=== PATIENT | male | born 1950 | race Caucasian/White ===

== ENCOUNTER 2021-08-21 18:14 | Emergency (ER) | payer MEDICARE, OTHER ==
[2021-08-21 18:20] VITALS: TEMP 97.8
--- NOTE | 2021-08-21 21:13 | ED ---
Chest Pain HPI - General Chief Complaint: Chest Pain Stated Complaint: chest pain Time Seen by Provider: 08/21/21 19:25 Source: patient Mode of arrival: ambulatory Limitations: no limitations - History of Present Illness Initial Comments: Patient is a 71-year-old male who presents emergency department for not feeling well. Sisters at bedside and helps supplement the history. Patient states that earlier today he did not feel well and therefore agreed to come to the hospital for evaluation. Upon my exam the patient states that he made a mistake and he wants to go home. He states that he had some chest pain yesterday however it has improved and he feels better. He has a history of coronary artery bypass grafting. Denies that he sees a physician at this time or takes any medications. Sisters states that he is a daily drinker. He has been for very long time. She has been losing weight and not caring for himself since his in September. She went over his house today to clean for him and she does once a month. He states that he felt fatigued and mentioned to her that he was having chest pain last night. Recommend that he come into the hospital however he originally refused. She states that she drove home and was almost to her house when he called her and stated that he did want according to the hospital. She reports that she turned around and when picked him up. Upon arrival here the patient had an EKG which showed a high heart rate. He did allow the nurse to put in an IV and obtain blood work however the patient quickly changed his mind and stated that he wanted to leave. He will not answer any further questions. He is not currently intoxicated - Related Data Home Medications Medication Instructions Recorded Confirmed Metoprolol Tartrate [Lopressor] 25 mg PO BID 08/26/21 08/26/21 Previous Rx's Medication Instructions Recorded Multivitamins, Thera [Multivitamin 1 each PO DAILY #30 tab 08/27/21 (formulary)] Thiamine [Vitamin B-1] 100 mg PO BID-W/MEALS #14 tab 08/27/21 Allergies Allergy/AdvReac Type Severity Reaction Status Date / Time No Known Allergies Allergy Verified 08/25/21 20:00 Review of Systems ROS Statement: Those systems with pertinent positive or pertinent negative responses have been documented in the HPI. ROS Other: All systems not noted in ROS Statement are negative. EKG Findings - EKG Comments: EKG Findings:: EKG demonstrates sinus tachycardia with a ventricular rate of 127. AR interval 140. QRS 86. QTC of 398. ST depression in leads V2 through V6 as well as the inferior leads. No acute ST segment elevation Past Medical History Past Medical History: Coronary Artery Disease (CAD) Additional Past Medical History / Comment(s): Bypass surg. History of Any Multi-Drug Resistant Organisms: None Reported Past Surgical History: No Surgical Hx Reported Past Psychological History: No Psychological Hx Reported Smoking Status: Never smoker Past Alcohol Use History: Daily Past Drug Use History: None Reported General Exam Limitations: no limitations General appearance: alert, anxious Head exam: Present: atraumatic, normocephalic, normal inspection ENT exam: Present: mucous membranes dry Respiratory exam: Present: normal lung sounds bilaterally. Absent: respiratory distress, wheezes, rales, rhonchi, stridor Cardiovascular Exam: Present: normal rhythm, tachycardia GI/Abdominal exam: Present: soft, normal bowel sounds. Absent: distended, tenderness, guarding, rebound, rigid Neurological exam: Present: alert Psychiatric exam: Present: anxious Skin exam: Present: warm, dry, intact, normal color. Absent: rash Course Vital Signs 08/21/21 08/21/21 18:18 19:48 Temperature 97.8 F Pulse Rate 128 H 127 H Respiratory 24 18 Rate Blood Pressure 115/67 130/80 O2 Sat by Pulse 99 99 Oximetry Chest Pain MDM - MDM Upon arrival patient is placed into room 14. He does allow us to get an EKG and obtain some lab work. I go into the room to speak with the patient and he is requesting to leave. Patient is alert, oriented and free of any mind altering substances. Patient is not currently intoxicated. Sister is at bedside and states the patient is at his normal baseline mentation. He is requesting to leave stating that he feels better at this time and made a mistake. States he no longer wants a workup. I did discuss the risks of leaving which include permanent disability and . Patient is aware of these risks and states that he still wants to leave. Inform him that he would be leaving AGAINST MEDICAL ADVICE. Spoke with the patient's sister as well. She does call and speak with the patient's daughter. They will attempt to persuade taking the patient into his primary care doctor. He is asked to return should he agree to any further workup. Patient agreed to this and left AGAINST MEDICAL ADVICE Disposition Clinical Impression: Dehydration, Tachycardia Disposition: Left Against Medical Advice Condition: Undetermined Is patient prescribed a controlled substance at d/c from ED?: No Referrals: None,Stated [Primary Care Provider] - 1-2 days
[2021-08-22 00:25] VITALS: BP 130/80; PULSE 127; RESP 18
== END 2021-08-21 21:29 | disposition left against medical advice (07) ==
LOC: EC 18:14
DX: R00.0 Tachycardia, unspecified (principal); E86.0 Dehydration; I25.10 Atherosclerotic heart disease of native coronary artery without angina pectoris; Z95.1 Presence of aortocoronary bypass graft
CPT/HCPCS: 93005; 99284

== ENCOUNTER 2021-08-25 19:49 | Inpatient (IN) | payer MEDICARE, OTHER ==
[2021-08-25] MEDS ORDERED: SODIUM CHLORIDE 0.9% 1,000 ML IV STA (20:01)
[2021-08-25 20:17] LABS: Basophils % (A) 0 %; Eosinophils # (A) 0.1 k/uL (0-0.7); Eosinophils % (A) 1 %; HGB 14.1 gm/dL (13.0-17.5); Lymphocytes # (A) 0.9 k/uL (1.0-4.8); Lymphocytes % (A) 12 %; MCH 37.3 pg (25.0-35.0); MCHC 32.9 g/dL (31.0-37.0); MCV 113.4 fL (80.0-100.0); Macrocytosis Marked; Mean Platelet Volume 7.4; Monocytes # (A) 0.3 k/uL (0-1.0); Monocytes % (A) 5 %; Neutrophils # (A) 5.7 k/uL (1.3-7.7); Neutrophils % (A) 80 %; Platelet Count 127 k/uL (150-450); RBC 3.79 m/uL (4.30-5.90); RDW 14.3 % (11.5-15.5); WBC 7.1 k/uL (3.8-10.6)
[2021-08-25 20:29] LABS: ALT 52 U/L (4-49); AST 103 U/L (17-59); African American GFR (CKD) >90 (>60 ml/min/1.73 sqM); Albumin 2.9 g/dL (3.5-5.0); Alkaline Phosphatase 202 U/L (38-126); Anion Gap 15 mmol/L; Blood Urea Nitrogen 5 mg/dL (9-20); Calcium 8.7 mg/dL (8.4-10.2); Carbon Dioxide 20 mmol/L (22-30); Chloride 90 mmol/L (98-107); Glucose 94 mg/dL (74-99); Magnesium 1.8 mg/dL (1.6-2.3); Non-African American GFR(CKD) >90 (>60 ml/min/1.73 sqM); Potassium 3.5 mmol/L (3.5-5.1); Sodium 125 mmol/L (137-145); Total Bilirubin 2.9 mg/dL (0.2-1.3); Total Protein 6.2 g/dL (6.3-8.2)
[2021-08-25 20:31] LABS: INR 1.1 (<1.2); Partial Thromboplastin Time 25.8 sec (22.0-30.0); Prothrombin Time 11.6 sec (9.0-12.0)
--- NOTE | 2021-08-25 20:35 | XR ---
EXAMINATION TYPE: XR chest 2V DATE OF EXAM: 08/25/2021 COMPARISON: NONE HISTORY: Shortness of breath TECHNIQUE: Frontal and lateral views of the chest are obtained. FINDINGS: Scattered senescent parenchymal changes noted. Hyperinflation compatible with COPD. No evidence for infiltrate. No evidence for atelectasis. Heart size is stable. Mediastinal structures are stable and grossly unremarkable. No evidence for hilar prominence. Degenerative changes dorsal spine. IMPRESSION: 1. No evidence for acute pulmonary disease.
--- NOTE | 2021-08-25 21:37 | ED ---
General Adult HPI - General Chief complaint: Arrhythmia/Palpitations Stated complaint: Tachycardia Time Seen by Provider: 08/25/21 20:01 Source: patient, EMS Mode of arrival: EMS Limitations: no limitations - History of Present Illness Initial comments: Chris is a 71-year-old male who is brought to the ER today by his sister for evaluation of not feeling well. Patient came to the ER earlier in the week but after EKG decided he did not want to be evaluated and left AGAINST MEDICAL ADVICE. After going home patient has continued to feel unwell, he's not eating or drinking he has had some pain in his left shoulder but no chest pain or shortness of breath. He just has generalized malaise and fatigue. Sister is concerned that he is very weak and dehydrated. - Related Data Home Medications Medication Instructions Recorded Confirmed Metoprolol (Unknown) 1 tab PO DAILY 08/25/21 08/25/21 Allergies Allergy/AdvReac Type Severity Reaction Status Date / Time No Known Allergies Allergy Verified 08/25/21 20:00 Review of Systems ROS Statement: Those systems with pertinent positive or pertinent negative responses have been documented in the HPI. ROS Other: All systems not noted in ROS Statement are negative. Past Medical History Past Medical History: Coronary Artery Disease (CAD) Additional Past Medical History / Comment(s): Bypass surg. History of Any Multi-Drug Resistant Organisms: None Reported Past Surgical History: No Surgical Hx Reported Past Psychological History: No Psychological Hx Reported Smoking Status: Never smoker Past Alcohol Use History: Daily Past Drug Use History: None Reported General Exam - General Exam Comments Initial Comments: Physical Exam GENERAL: Dehydrated appearing elderly gentleman HENT: Normocephalic, Atraumatic. EYES: PERRL, EOMI PULMONARY: Unlabored respirations. No audible rales rhonchi or wheezing was noted. CARDIOVASCULAR: There is a regular rate and rhythm without any murmurs gallops or rubs. ABDOMEN: Soft and nontender with normal bowel sounds. SKIN: Dry, skin tenting noted Bruise to the left eyelid patient reports that this is not acute and is from rubbing his eyes not traumatic : Deferred NEUROLOGIC: Alert and oriented to person and place, somewhat confused about the timeline of the week, easily confused when trying to her by medical history. MUSCULOSKELETAL: Generalized atrophy PSYCHIATRIC: Poor historian, easily confused but cooperative, Limitations: no limitations Course Vital Signs 10/08/25/21 08/25/21 19:50 20:00 20:01 Temperature 97.5 F L Pulse Rate 108 H 93 Pulse Rate [ 108 H Manager Engagement ] Respiratory 22 22 Rate Blood Pressure 133/81 O2 Sat by Pulse 98 100 Oximetry 08/25/21 21:00 Temperature Pulse Rate 82 Pulse Rate [ Manager Engagement ] Respiratory 20 Rate Blood Pressure 139/88 O2 Sat by Pulse 97 Oximetry EKG Findings - EKG Comments: EKG Findings:: EKG was obtained due to tachycardia, EKG was obtained at 1953 rate is 98 rhythm is sinus tachycardia there is normal axis, IN 132, QRS 90 QTc is prolonged at [address] depressions laterally no acute ST elevations no evidence of acute infarction. Medical Decision Making - Medical Decision Making The patient was seen and evaluated history is obtained from medical record patient and sister at bedside, so very dehydrated-appearing 71-year-old gentleman, labs are obtained and resulted with multiple significant abnormalities including low platelets, low lymphocytes, hyponatremia with a sodium of only 125, evidence of dehydration, transaminitis COVID sob was obtained and was negative Given the patient's advanced age and multiple lab abnormalities I do feel he warrants admission to the hospital for fluid resuscitation, reevaluation of the labs and further monitoring. Patient care was discussed with Dr. Gallegos of [facility] who accepts the admission. - Lab Data Result diagrams: 08/25/21 20:07 08/25/21 20:07 Lab Results 08/25/21 08/25/21 08/25/21 Range/Units 20:07 20:07 20:07 WBC 7.1 (3.8-10.6) k/uL RBC 3.79 L (4.30-5.90) m/uL Hgb 14.1 (13.0-17.5) gm/dL Hct 43.0 (39.0-53.0) % MCV 113.4 H (80.0-100.0) fL MCH 37.3 H (25.0-35.0) pg MCHC 32.9 (31.0-37.0) g/dL RDW 14.3 (11.5-15.5) % Plt Count 127 L (150-450) k/uL MPV 7.4 Neutrophils % 80 % Lymphocytes % 12 % Monocytes % 5 % Eosinophils % 1 % Basophils % 0 % Neutrophils # 5.7 (1.3-7.7) k/uL Lymphocytes # 0.9 L (1.0-4.8) k/uL Monocytes # 0.3 (0-1.0) k/uL Eosinophils # 0.1 (0-0.7) k/uL Basophils # 0.0 (0-0.2) k/uL Macrocytosis Marked A PT 11.6 (9.0-12.0) sec INR 1.1 (<1.2) APTT 25.8 (22.0-30.0) sec Sodium 125 L (137-145) mmol/L Potassium 3.5 (3.5-5.1) mmol/L Chloride 90 L (98-107) mmol/L Carbon Dioxide 20 L (22-30) mmol/L Anion Gap 15 mmol/L BUN 5 L (9-20) mg/dL Creatinine 0.47 L (0.66-1.25) mg/dL Est GFR (CKD-EPI)AfAm >90 (>60 ml/min/1.73 sqM) Est GFR (CKD-EPI)NonAf >90 (>60 ml/min/1.73 sqM) Glucose 94 (74-99) mg/dL Calcium 8.7 (8.4-10.2) mg/dL Magnesium 1.8 (1.6-2.3) mg/dL Total Bilirubin 2.9 H (0.2-1.3) mg/dL AST 103 H (17-59) U/L ALT 52 H (4-49) U/L Alkaline Phosphatase 202 H (38-126) U/L Troponin I (0.000-0.034) ng/mL Total Protein 6.2 L (6.3-8.2) g/dL Albumin 2.9 L (3.5-5.0) g/dL TSH 1.730 (0.465-4.680) mIU/L Coronavirus (PCR) (Not Detectd) 08/25/21 08/25/21 Range/Units 20:07 21:42 WBC (3.8-10.6) k/uL RBC (4.30-5.90) m/uL Hgb (13.0-17.5) gm/dL Hct (39.0-53.0) % MCV (80.0-100.0) fL MCH (25.0-35.0) pg MCHC (31.0-37.0) g/dL RDW (11.5-15.5) % Plt Count (150-450) k/uL MPV Neutrophils % % Lymphocytes % % Monocytes % % Eosinophils % % Basophils % % Neutrophils # (1.3-7.7) k/uL Lymphocytes # (1.0-4.8) k/uL Monocytes # (0-1.0) k/uL Eosinophils # (0-0.7) k/uL Basophils # (0-0.2) k/uL Macrocytosis PT (9.0-12.0) sec INR (<1.2) APTT (22.0-30.0) sec Sodium (137-145) mmol/L Potassium (3.5-5.1) mmol/L Chloride (98-107) mmol/L Carbon Dioxide (22-30) mmol/L Anion Gap mmol/L BUN (9-20) mg/dL Creatinine (0.66-1.25) mg/dL Est GFR (CKD-EPI)AfAm (>60 ml/min/1.73 sqM) Est GFR (CKD-EPI)NonAf (>60 ml/min/1.73 sqM) Glucose (74-99) mg/dL Calcium (8.4-10.2) mg/dL Magnesium (1.6-2.3) mg/dL Total Bilirubin (0.2-1.3) mg/dL AST (17-59) U/L ALT (4-49) U/L Alkaline Phosphatase (38-126) U/L Troponin I <0.012 (0.000-0.034) ng/mL Total Protein (6.3-8.2) g/dL Albumin (3.5-5.0) g/dL TSH (0.465-4.680) mIU/L Coronavirus (PCR) Not Detected (Not Detectd) Disposition Clinical Impression: Hyponatremia, Transaminitis, Dehydration Disposition: ADMITTED IP TO THIS [facility] Condition: Serious
[2021-08-25] MEDS ORDERED: NALOXONE 0.4 MG/ML 1 ML VIAL IV PRN (21:51)
[2021-08-26] MEDS ORDERED: THIAMINE 100 MG/ML 2 ML VIAL IM STA (01:12)
[2021-08-26] MEDS ORDERED: LORazepam 2 MG/ML INJ IV PRN ×3 (01:12)
--- NOTE | 2021-08-26 01:14 | P.HPIM ---
History of Present Illness H&P Date: 08/26/21 Patient is 71-year-old male with a PMH of CAD and alcohol abuse who was brought into the ED by his daughter for failure to thrive. The patient notes that he has been "not feeling well" for the past few weeks. He is unable to state a precise reason or complaint but notes that he doesn't have much of an appetite and doesn't have the energy to perform his ADLs. The patient lives by himself. The history was supplemented by his daughter on the telephone who reported that the patient normally drinks several glasses of red wine and some beers every day and she believes that his overall health has gradually deteriorated since the passing of his last year in September. She reports that he has lost roughly 20-30 pounds in the past few months. The patient denied chest discomfort, shortness of breath, cough, fever, chills. He also denied falls, weakness, numbness, tingling. Denied nausea, vomiting, abdominal pain, diarrhea. Laboratory evaluation in the emergency room was remarkable for macrocytosis of 113.4, the consult 127, sodium 125, chloride 90, BUN 5, creatinine 0.47, AST 103, ALT 52, alk phos 202, and albumin 2.9 with coronavirus PCR negative. EKG has revealed a normal sinus rhythm at 98 bpm with T-wave inversions noted in the precordial leads along with the prolonged QTC. Review of systems: Pertinent positives and negatives as discussed in HPI, a complete review of systems was performed and all other systems are negative. Physical examination: General: non toxic, no distress, appears at stated age, frail Derm: no unusual rashes/lesions no unusual ecchymoses, warm, dry Head: atraumatic, normocephalic, symmetric Eyes: EOMI, no lid lag, anicteric sclera, pupils equal round reactive to light ENT: Nose and ears atraumatic, no thrush, no pharyngeal erythema Neck: No thyromegaly, no cervical lymphadenopathy, trachea midline, supple Mouth: no lip lesion, mucus membranes moist Cardiovascular: S1S2 reg, no murmur, positive posterior tibial pulse bilateral, no edema, capillary refill less than 2 seconds Lungs: CTA bilateral, no rhonchi, no rales , no accessory muscle use Abdominal: soft, nontender to palpation, no guarding, no appreciable organomegaly, normal bowel sounds Ext: no gross muscle atrophy, muscle strength 4 out of 5 in all 4 extremities grossly, no contractures, Neuro: CN II-XI grossly intact, light touch intact all 4 extremities, finger to nose within normal limits, Psych: Alert, oriented only to person and place, not oriented to time Assessment/plan Failure to thrive, may be due to ongoing alcohol abuse -Patient denied depression or suicidal ideation -Physical therapy consult -Dietitian consult as patient appears to be malnourished Macrocytosis -Obtain anemia workup Hypochloremic hyponatremia -Likely secondary to poor oral intake -IV fluids and monitor for now Alcohol abuse -Thiamine -CIWA protocol -Fall precautions Abnormal LFTs -Likely secondary to alcohol abuse Prolonged QTC -Avoid further prolonging agents DVT prophylaxis -Heparin subcu The patient is admitted with an anticipated greater than 2 midnight stay for ayaan luation of failure to thrive CODE STATUS: Full Code Discussed with: Patient Anticipated discharge date: 2-[address]: Home Past Medical History Past Medical History: Coronary Artery Disease (CAD) Additional Past Medical History / Comment(s): Bypass surg. History of Any Multi-Drug Resistant Organisms: None Reported Past Surgical History: Coronary Bypass/CABG Additional Past Surgical History / Comment(s): [facility] 25 yrs ago CABG Past Anesthesia/Blood Transfusion Reactions: No Reported Reaction Smoking Status: Never smoker - Past Family History Father Family Medical History: Cancer Mother Family Medical History: Cancer Medications and Allergies Home Medications Medication Instructions Recorded Confirmed Type Metoprolol (Unknown) 10 mg PO DAILY 08/25/21 08/26/21 History Allergies Allergy/AdvReac Type Severity Reaction Status Date / Time No Known Allergies Allergy Verified 08/25/21 20:00 Physical Exam Vitals: Vital Signs Temp Pulse Pulse Pulse Resp BP BP 08/25/21 23:40 97.7 F 87 18 158/87 08/25/21 23:20 97.6 F 86 18 133/79 08/25/21 21:00 82 20 139/88 08/25/21 20:01 108 H 08/25/21 20:00 93 22 133/81 08/25/21 19:50 97.5 F L 108 H 22 Pulse Ox 08/25/21 23:40 98 08/25/21 23:20 97 08/25/21 21:00 97 08/25/21 20:01 08/25/21 20:00 100 08/25/21 19:50 98 Intake and Output 08/25/21 08/25/21 08/26/21 14:59 22:59 06:59 Other: Weight 49.895 kg 49.895 kg Results CBC & Chem 7: 08/25/21 20:07 08/25/21 20:07 Labs: Abnormal Lab Results - Last 24 Hours (Table) 08/25/21 08/25/21 Range/Units 20:07 20:07 RBC 3.79 L (4.30-5.90) m/uL MCV 113.4 H (80.0-100.0) fL MCH 37.3 H (25.0-35.0) pg Plt Count 127 L (150-450) k/uL Lymphocytes # 0.9 L (1.0-4.8) k/uL Macrocytosis Marked A Sodium 125 L (137-145) mmol/L Chloride 90 L (98-107) mmol/L Carbon Dioxide 20 L (22-30) mmol/L BUN 5 L (9-20) mg/dL Creatinine 0.47 L (0.66-1.25) mg/dL Total Bilirubin 2.9 H (0.2-1.3) mg/dL AST 103 H (17-59) U/L ALT 52 H (4-49) U/L Alkaline Phosphatase 202 H (38-126) U/L Total Protein 6.2 L (6.3-8.2) g/dL Albumin 2.9 L (3.5-5.0) g/dL Thrombosis Risk Factor Assmnt - Choose All That Apply Any of the Below Risk Factors Present?: No Other Risk Factors: Yes Each Risk Factor Represents 2 Points: Age 61-74 years Other congenital or acquired thrombophilia - If yes, enter type in comment: No Thrombosis Risk Factor Assessment Total Risk Factor Score: 2 Thrombosis Risk Factor Assessment Level: Low Risk
[2021-08-26] MEDS ORDERED: ALPRAZolam 0.5 MG TAB PO STA (03:07)
[2021-08-26] MEDS ORDERED: HEPARIN SODIUM,PORCINE/PF 5,000 UNIT/0.5 ML SYRINGE SQ SCH ×2 (08:00→09:00)
[2021-08-26] MEDS: MULTIVITAMINS, THERA 1 EACH TAB PO SCH (08:01)
[2021-08-26 09:12] LABS: HCT 33.7 % (39.6-50.0); HGB 11.5 g/dL (13.0-17.0); MCH 36.7 pg (27.0-32.0); MCHC 34.1 g/dL (32.0-37.0); MCV 107.7 fL (80.0-97.0); Mean Platelet Volume 9.4 fL (9.5-12.2); Platelet Count 92 X 10*3/uL (140-440); RBC 3.13 X 10*6/uL (4.40-5.60); RDW 14.6 % (11.5-14.5); WBC 5.41 X 10*3/uL (4.50-10.00)
[2021-08-26 09:17] VITALS: BMI 17.2
[2021-08-26 10:19] LABS: African American GFR (CKD) 124.6 (60.0-200.0); Albumin 2.4 g/dL (3.8-4.9); Albumin/Globulin Ratio 0.96 (1.60-3.17); Anion Gap 14.6 mmol/L (4.00-12.00); BUN/Creat Ratio 10.2 Ratio (12.00-20.00); Blood Urea Nitrogen 5.1 mg/dL (9.0-27.0); Calcium 8.1 mg/dL (8.7-10.3); Carbon Dioxide 23.4 mmol/L (21.6-31.8); Globulin 2.5 g/dL (1.6-3.3); Non-African American GFR(CKD) 107.5 (60.0-200.0); Potassium 3.4 mmol/L (3.5-5.5); Total Bilirubin 2.1 mg/dL (0.30-1.20); Total Protein 4.9 g/dL (6.2-8.2)
--- NOTE | 2021-08-26 13:53 | P.PN ---
Subjective Patient is doing well today. He was up walking in the room when I saw him. He is asking when he could go home. Objective - Vital Signs Vital signs: Vital Signs Temp 97.5 F L 08/26/21 07:00 Pulse 80 08/26/21 07:00 Resp 18 08/26/21 07:00 BP 122/73 08/26/21 07:00 Pulse Ox 99 08/26/21 07:00 Intake & Output 08/25/21 08/26/21 08/26/21 18:59 06:59 18:59 Weight 49.895 kg 49.895 kg Other: Voiding Method Toilet Toilet Urinal Urinal # Voids 3 - Exam General: The patient is awake and alert, in no distress Eye: there is normal conjunctiva bilaterally. Neck: The neck is supple, there is no JVD. Cardiovascular: Normal S1-S2, no S3-S4, no murmurs. Respiratory: Lungs clear to auscultation bilaterally Gastrointestinal: Abdomen is soft, nontender Musculoskeletal: There is no pedal edema. Neurological:. Speech is normal. Skin: Skin is warm and dry - Labs CBC & Chem 7: 08/26/21 05:47 08/26/21 05:47 Labs: Abnormal Lab Results - Last 24 Hours (Table) 08/25/21 08/25/21 08/26/21 Range/Units 20:07 20:07 05:47 RBC 3.79 L (4.30-5.90) m/uL Hgb (13.0-17.0) g/dL Hct (39.6-50.0) % MCV 113.4 H (80.0-100.0) fL MCH 37.3 H (25.0-35.0) pg RDW (11.5-14.5) % Plt Count 127 L (150-450) k/uL MPV (9.5-12.2) fL Lymphocytes # 0.9 L (1.0-4.8) k/uL Macrocytosis Marked A Sodium 125 L (137-145) mmol/L Potassium (3.5-5.5) mmol/L Chloride 90 L (98-107) mmol/L Carbon Dioxide 20 L (22-30) mmol/L Anion Gap (4.00-12.00) mmol/L BUN 5 L (9-20) mg/dL Creatinine 0.47 L (0.66-1.25) mg/dL BUN/Creatinine Ratio (12.00-20.00) Ratio Calcium (8.7-10.3) mg/dL Total Bilirubin 2.9 H (0.2-1.3) mg/dL AST 103 H (17-59) U/L ALT 52 H (4-49) U/L Alkaline Phosphatase 202 H (38-126) U/L C-Reactive Protein (0.00-0.80) mg/dL Total Protein 6.2 L (6.3-8.2) g/dL Albumin 2.9 L (3.5-5.0) g/dL Albumin/Globulin Ratio (1.60-3.17) g/dL Vitamin B12 1627.0 H (200.0-944.0) pg/mL 08/26/21 08/26/21 Range/Units 05:47 05:47 RBC 3.13 L (4.30-5.90) m/uL Hgb 11.5 L (13.0-17.0) g/dL Hct 33.7 L (39.6-50.0) % MCV 107.7 H (80.0-100.0) fL MCH 36.7 H (25.0-35.0) pg RDW 14.6 H (11.5-14.5) % Plt Count 92 L (150-450) k/uL MPV 9.4 L (9.5-12.2) fL Lymphocytes # (1.0-4.8) k/uL Macrocytosis Sodium 130 L (137-145) mmol/L Potassium 3.4 L (3.5-5.5) mmol/L Chloride 92 L (98-107) mmol/L Carbon Dioxide (22-30) mmol/L Anion Gap 14.60 H (4.00-12.00) mmol/L BUN 5.1 L (9-20) mg/dL Creatinine 0.5 L (0.66-1.25) mg/dL BUN/Creatinine Ratio 10.20 L (12.00-20.00) Ratio Calcium 8.1 L (8.7-10.3) mg/dL Total Bilirubin 2.10 H (0.2-1.3) mg/dL AST 81 H (17-59) U/L ALT (4-49) U/L Alkaline Phosphatase 163 H (38-126) U/L C-Reactive Protein 2.00 H (0.00-0.80) mg/dL Total Protein 4.9 L (6.3-8.2) g/dL Albumin 2.4 L (3.5-5.0) g/dL Albumin/Globulin Ratio 0.96 L (1.60-3.17) g/dL Vitamin B12 (200.0-944.0) pg/mL Assessment and Plan Assessment: Patient is 71-year-old male with a PMH of CAD and alcohol abuse who was brought into the ED by his daughter for failure to thrive. The patient notes that he has been "not feeling well" for the past few weeks. He is unable to state a precise reason or complaint but notes that he doesn't have much of an appetite and doesn't have the energy to perform his ADLs. The patient lives by himself. The history was supplemented by his daughter on the telephone who reported that the patient normally drinks several glasses of red wine and some beers every day and she believes that his overall health has gradually deteriorated since the passing of his last year in September. She reports that he has lost roughly 20-30 pounds in the past few months. The patient denied chest discomfort, shortness of breath, cough, fever, chills. He also denied falls, weakness, numbness, tingling. Denied nausea, vomiting, abdominal pain, diarrhea. Laboratory evaluation in the emergency room was remarkable for macrocytosis of 113.4, the consult 127, sodium 125, chloride 90, BUN 5, creatinine 0.47, AST 103, ALT 52, alk phos 202, and albumin 2.9 with coronavirus PCR negative. EKG has revealed a normal sinus rhythm at 98 bpm with T-wave inversions noted in the precordial leads along with the prolonged QTC. Assessment/plan Hypovolemic hyponatremia -Improving with IV fluid hydration. Repeat lab work in the morning. Failure to thrive, may be due to ongoing alcohol abuse -Patient denied depression or suicidal ideation -Physical therapy consult -Dietitian consult as patient appears to be malnourished Macrocytosis -Probably secondary to alcohol abuse Alcohol abuse -Thiamine -WA protocol -Fall precautions Abnormal LFTs -Likely secondary to alcohol abuse Prolonged QTC -Avoid further prolonging agents DVT prophylaxis -Heparin subcu CODE STATUS: Full Code Discussed with: Patient Anticipated discharge date: 2-[address]: Home
[2021-08-26 15:32] LABS: Erythrocyte Sedimentation Rate 10 mm/Hr (0-20)
[2021-08-26] MEDS: THIAMINE 100 MG TAB PO SCH (17:36)
[2021-08-26] MEDS: HEPARIN SODIUM,PORCINE/PF 5,000 UNIT/0.5 ML SYRINGE SQ SCH (21:33)
[2021-08-27] MEDS: MULTIVITAMINS, THERA 1 EACH TAB PO SCH (08:14)
[2021-08-27] MEDS: HEPARIN SODIUM,PORCINE/PF 5,000 UNIT/0.5 ML SYRINGE SQ SCH (08:14)
[2021-08-27] MEDS: THIAMINE 100 MG TAB PO SCH (08:14)
[2021-08-27 09:32] VITALS: BP 129/84; PULSE 99; RESP 17; TEMP 98.3
[2021-08-27 10:25] LABS: African American GFR (CKD) >90 (>60 ml/min/1.73 sqM); Anion Gap 5 mmol/L; Blood Urea Nitrogen 5 mg/dL (9-20); Calcium 8.6 mg/dL (8.4-10.2); Carbon Dioxide 29 mmol/L (22-30); Chloride 95 mmol/L (98-107); Glucose 112 mg/dL (74-99); Magnesium 1.7 mg/dL (1.6-2.3); Non-African American GFR(CKD) >90 (>60 ml/min/1.73 sqM); Potassium 3.2 mmol/L (3.5-5.1); Sodium 129 mmol/L (137-145)
[2021-08-27] MEDS ORDERED: POTASSIUM CHLORIDE ER 20 MEQ TAB.ER PO STA (11:01)
--- NOTE | 2021-08-27 11:08 | P.DS ---
Providers Date of admission: 08/25/21 21:51 Expected date of discharge: 08/27/21 Attending physician: Ricardo Gallegos MD Primary care physician: Stated None Hospital Course: Patient is 71-year-old male with a PMH of CAD and alcohol abuse who was brought into the ED by his daughter for failure to thrive. The patient notes that he has been "not feeling well" for the past few weeks. He is unable to state a precise reason or complaint but notes that he doesn't have much of an appetite and doesn't have the energy to perform his ADLs. The patient lives by himself. The history was supplemented by his daughter on the telephone who reported that the patient normally drinks several glasses of red wine and some beers every day and she believes that his overall health has gradually deteriorated since the passing of his last year in September. She reports that he has lost roughly 20-30 pounds in the past few months. The patient denied chest discomfort, shortness of breath, cough, fever, chills. He also denied falls, weakness, numbness, tingling. Denied nausea, vomiting, abdominal pain, diarrhea. Laboratory evaluation in the emergency room was remarkable for macrocytosis of 113.4, the consult 127, sodium 125, chloride 90, BUN 5, creatinine 0.47, AST 103, ALT 52, alk phos 202, and albumin 2.9 with coronavirus PCR negative. EKG has revealed a normal sinus rhythm at 98 bpm with T-wave inversions noted in the precordial leads along with the prolonged QTC. Patient was admitted to the hospital and his overall condition remained stable. His potassium was replaced. Patient was counseled extensively regarding alcohol abuse and was advised to stop drinking completely. Patient verbalized understanding of the plan. He requested to be referred to a new PCP which I referred him to Dr. Robert. Patient was able to get up and ambulate in his room and hallway with no difficulty and no assistance. He would be discharged home in a stable condition. For further details about this hospitalization please refer to the electronic chart Patient Condition at Discharge: Fair Plan - Discharge Summary Discharge Rx Participant: No New Discharge Prescriptions: New Multivitamins, Thera [Multivitamin (formulary)] 1 each PO DAILY #30 tab Thiamine [Vitamin B-1] 100 mg PO BID-W/MEALS #14 tab Continue Metoprolol Tartrate [Lopressor] 25 mg PO BID Discharge Medication List Metoprolol Tartrate [Lopressor] 25 mg PO BID 08/26/21 [History] Multivitamins, Thera [Multivitamin (formulary)] 1 each PO DAILY #30 tab 08/27/21 [Rx] Thiamine [Vitamin B-1] 100 mg PO BID-W/MEALS #14 tab 08/27/21 [Rx] Follow up Appointment(s)/Referral(s): None,Stated [Primary Care Provider] - 1-2 days Marcus Robert [STAFF PHYSICIAN] - 1 Week Discharge Disposition: HOME SELF-CARE
--- NOTE | 2021-08-29 13:45 | CDI ---
Documentation Clarification Form Date: 08/29/2021 01:36:43 PM From: Roman Aviles Admit Date: 08/25/2021 09:51:00 PM Patient Name: Chris Celeste Visit Number: [id number] Discharge Date: 08/27/2021 12:55:00 PM ATTENTION: The Clinical Documentation Specialists (CDI) and [facility] Coding Staff appreciate your assistance in clarifying documentation. Please respond to the clarification below the line at the bottom and electronically sign. The CDI & [facility] Coding staff will review the response and follow-up if needed. Please note: Queries are made part of the Legal Health Record. If you have any questions, please contact the author of this message via ITS. Dr. Leonel Johnson H+P states malnourished. Need to know if there is a diagnosis associated with this. History/Risk Factors: alcohol abuse, FTT, dehydration, hyponatremia, macrocytosis, prolonged QT Clinical Indicators: Current BMI: 17 Insufficient energy intake Treatment: Dietary Consult: nutrition for FTT Supplements: Lab monitoring: albumin 2.9, total protein 6.2 Please clarify the type of malnutrition, if known: [ ] Mild Protein-Calorie Malnutrition [ X ] Moderate Protein-Calorie Malnutrition [ ] Severe Protein-Calorie Malnutrition [ ] Malnutrition, unspecified [ ] No diagnosis of malnutrition [ ] Other condition, please specify [ ] Unable to Determine MTDD
== END 2021-08-27 12:55 | disposition home or self-care (01) | DRG 641 ==
LOC: EC 19:49 → 6NMEDSUR 21:51
PROVIDERS: ADMIT Internal Medicine; ATTEND Internal Medicine
DX: E87.1 Hypo-osmolality and hyponatremia (principal); Z68.1 Body mass index [BMI] 19.9 or less, adult; E44.0 Moderate protein-calorie malnutrition; E86.0 Dehydration; R00.0 Tachycardia, unspecified; D75.89 Other specified diseases of blood and blood-forming organs; E86.1 Hypovolemia; F10.10 Alcohol abuse, uncomplicated; I25.10 Atherosclerotic heart disease of native coronary artery without angina pectoris; R62.7 Adult failure to thrive; Z95.1 Presence of aortocoronary bypass graft; Z20.822 Contact with and (suspected) exposure to COVID-19; Z71.41 Alcohol abuse counseling and surveillance of alcoholic
CPT/HCPCS: 36415; 71046; 80048; 80053; 82607; 82747; 83735; 84443; 84484; 85025; 85027; 85610; 85652; 85730; 86140; 87635; 93005; 96360; 96361; 99285